=== PATIENT | female | born 1985 | race Caucasian/White ===

== ENCOUNTER 2023-12-27 10:54 | Emergency (ER) | payer OTHER, SELFPAY ==
[2023-12-27 11:00] VITALS: BMI 30.6
[2023-12-27 11:07] VITALS: BP 102/61
[2023-12-27 11:31] LABS: % Basophils 0.8 % (0-2); % Eosinophils 1.1 % (0-6); % Immature Granulocytes 0.1 % (0-0.5); % Lymphocytes 22.4 % (20.5-51.1); % Monocytes 7.1 % (1.7-9.3); % Neutrophils 68.5 % (42.2-75.2); Absolute Basophils 0.1 10^3/uL (0-0.2); Absolute Eosinophils 0.1 10^3/uL (0-0.7); Absolute Lymphocytes 1.8 10^3/uL (1.2-3.4); Absolute Monocytes 0.6 10^3/uL (0.1-0.6); Absolute Neutrophils 5.4 10^3/uL (1.4-6.5); Hematocrit 25.7 % (37.0-47.0); Hemoglobin 7.7 g/dL (12.0-16.0); Mean Corpuscular Hgb 20.6 pg (27.0-31.0); Mean Corpuscular Volume 68.7 fL (81.0-99.0); Mean Platelet Volume 10.1 fL (7.4-10.4); Nucleated Red Blood Cells % 0 %; Platelet Count 356 10^3/uL (130-400); Red Blood Cell Count 3.74 10^6/uL (4.20-5.40); Red Cell Dist. Width 17.6 % (11.5-14.5); White Blood Cell Count 7.9 10^3/uL (4.8-10.8)
[2023-12-27 11:46] LABS: ALT (SGPT) 21 U/L (0-35); AST (SGOT) 28 U/L (14-36); Albumin 3.4 g/dl (3.5-5.0); Alkaline Phosphatase 83 U/L (38-126); Blood Urea Nitrogen 11 mg/dl (7-17); Calcium 9.1 mg/dl (8.4-10.2); Carbon Dioxide 26 mmol/L (22-30); Chloride 103 mmol/L (98-107); Estimated Creatinine Clearance 123 ml/min; Glucose 68 mg/dl (70-99); Potassium 4.6 mmol/L (3.5-5.1); Sodium 137 mmol/L (135-145); Total Bilirubin 0.3 mg/dl (0.2-1.3); Total Protein 5.7 g/dl (6.3-8.2); eGFR > 60.00
[2023-12-27 12:12] LABS: HCG, Serum Qualitative Screen Negative
[2023-12-27 13:22] VITALS: BP 95/60
[2023-12-27 13:35] VITALS: BP 98/59
[2023-12-27 13:43] VITALS: BP 95/59
--- NOTE | 2023-12-27 14:03 | ED.GENMED ---
History of Present Illness
General
Chief Complaint: Abnormal Lab Value
Source: patient, records and police
Exam Limitations: none
Time Seen by Provider: 12/27/23 11:31
Nursing documentation reviewed up to this point in time: agreed with
History of Present Illness
History of Present Illness:
38-year-old female with history of GERD/PUD, chronic iron deficiency anemia presents to the emergency room from [facility] for evaluation of lightheadedness and anemia�she had a slight drop in hemoglobin and was sent over for
blood transfusion. Patient reports that over the past week or 2 she has noticed some increased fatigue and positional lightheadedness. She says these are her typical symptoms when she becomes more anemic. She says that she has received iron
infusions in the past for her anemia. She denies any chest pain, shortness of breath, palpitations or any other symptoms. She denies any vaginal bleeding�last menstrual period was 4 weeks ago and she says it was a normal period, no heavy bleeding.
She denies any blood in her stools. She is not on any blood thinners. I spoke with the nurse at the [facility]�they report that she was complaining of some lightheadedness and they checked her hemoglobin level and it had dropped from 8.4 in February
2022 to 8.0 on labs drawn today and so she was referred to the ER for blood transfusion.
Review of Systems
Review of Systems
All Other Systems: ROS reviewed and negative except as documented in HPI and ROS
Constitutional: Reports fatigue
Respiratory: Denies trouble breathing
Cardiac: Denies chest pain, palpitations or syncope
ABD/GI: Denies abdominal pain, vomiting, diarrhea, bloody stools or black stools
: Denies bleeding
Neurological: Reports dizzy; Denies headache
Phy Exam
Physical Exam
Physical Exam:
General: Awake, alert, oriented x3; no acute distress
Head: Normocephalic, atraumatic
Eyes: Conjunctiva normal
Throat: Airway intact, handling secretions
Neck: Trachea midline, supple without meningismus
Lungs: Clear to auscultation bilaterally, no wheezing, rales, rhonchi
Heart: Regular rate and rhythm, no murmurs, gallops, or rubs
Abd: Soft, non distended, nontender
Rectal: Light brown stool Hemoccult negative
Neuro: No gross deficits
Skin: no rash
Extremities: No edema in extremities, equal pulses in all extremities
Scores
Heart Failure Risk
Heart Failure Risk Score: Not Applicable
Heart Score for Chest Pain Patients
STEMI patient?: Not applicable
Withdrawal Assessment of Alcohol
Withdrawal Assessment Completed?: Not applicable
Course
Orders/Labs/Results
Orders:
Orders
12/27/23 11:15
Type+Screen Urgent
Complete Blood Count/With Diff Urgent
Comprehensive Metabolic Panel Urgent
HCG, Serum Qualitative Screen Urgent
Comment: ADD ON
12/27/23 11:32
Test Result ONCE
12/27/23 11:51
ABO2 Urgent
[employer] Wristband Number:
Associate notified that ABO2 has been ordered: [id number]
Date: 12/27/23
Time: 11:31
[employer] Driver ID: [id number]
12/27/23 11:55
Add On- LAB Urgent
Comments:: HCG qual serum
Tests Added?: HCG qual serum
12/27/23 12:09
* Blood Bank Products Urgent
Blood Bank Products: *Packed RBC Leuko(PRBC's)
Quantity: 1
Transfuse Today: Yes
Reason: Anemia
12/27/23 12:17
Electrocardiogram (*1) Urgent
Reason for Study: Vertigo / Dizzy
EKG- Treatment ONCE
12/27/23 15:00
0.9% Sodium Chloride 500 ml [Nss] 500 ml IV 250 mls/hr
Abnormal Lab Results
12/27/23
11:15
RBC 3.74 L 10^6/uL
(4.20-5.40)
Hgb 7.7 L g/dL
(12.0-16.0)
Hct 25.7 L %
(37.0-47.0)
MCV 68.7 L fL
(81.0-99.0)
MCH 20.6 L pg
(27.0-31.0)
MCHC 30.0 L g/dL
(33.0-37.0)
RDW 17.6 H %
(11.5-14.5)
Glucose 68 L mg/dl
(70-99)
Total Protein 5.7 L g/dl
(6.3-8.2)
Albumin 3.4 L g/dl
(3.5-5.0)
Crossmatch IS Only See Detail
12/27/23 11:15
12/27/23 11:15
Vital Signs
Initial and Last Documented VS:
Initial Vital Signs
Temp Pulse Resp BP Pulse Ox
36.8 C 59 16 102/61 100
12/27/23 11:07 12/27/23 11:07 12/27/23 11:07 12/27/23 11:07 12/27/23 11:07
Last Documented Vital Signs
Temp Pulse Resp BP Pulse Ox
36.8 C 58 18 103/69 96
12/27/23 15:18 12/27/23 15:18 12/27/23 15:18 12/27/23 15:18 12/27/23 15:18
MDM/Problems Addressed
Differential Diagnosis Includes:
Symptomatic anemia, dehydration, dysrhythmia, electrolyte derangement, viral syndrome
MDM/Problems Addressed:
38-year-old female presents to the emergency room from [facility] for evaluation of positional lightheadedness and fatigue that she says is consistent with prior anemia symptoms. She has a history of chronic iron deficiency anemia. Had slight drop in
hemoglobin given that she had a minor drop and was having symptoms she was referred for blood transfusion. She has not had any bleeding. Vitals and exam as above�notably heme-negative. He sent off labs�hemoglobin confirmed minor drop, 7.7 today.
Low MCV. CMP showed mild hypoglycemia�patient taking p.o. here. hCG negative. We sent off a type and screen. I checked an EKG given her positional dizziness and this shows sinus rhythm. I had a long discussion with the patient, explained that
this is above typical transfusion threshold but she says she gets very symptomatic with minor drops. Will give 1 unit of PRBCs. Can be discharged after transfusion. Follow-up with primary provider at [facility].
Chronic conditions affecting care:
Chronic, deficiency anemia
*Pulse Oximetry
Patient hypoxic: no
*EKG
Interpreted by ED Provider?: Yes
Heart Rate: 52
Rate: bradycardiac
Rhythm: sinus
[place]: normal axis
Interval: normal interval
QRS Pattern: normal QRS
Ischemia: no ischemia
*Critical Care Note
Total Time (30-74mins, 75-104mins- exclusive of procedures): Not Applicable
Data Reviewed
Review of Other/Old Records Reveals: Labs and Records
Source: patient, records and police
Patient Management
Discussion with other providers: PCP (Discussed with primary provider at the [facility])
ED Attending Note
-
Portions of this chart may have been created with voice recognition software.� Occasional wrong word or��sound alike� substitutions may have occurred due to the inherent limitations of voice recognition software.
Discharge Plan
Departure
Patient Disposition: Home (Routine Discharge)
Date of Disposition: 12/27/23
Time of Disposition: 14:06
Patient with high blood pressure during this ER visit?: No
Discharge Problem:
Symptomatic anemia
Instructions: Blood transfusion
Prescriptions:
No Action
ropinirole [Requip] 1 mg Tablet
1 mg PO HS
pantoprazole 40 mg Tablet,Delayed Release (Dr/Ec)
40 mg PO DAILY
Referrals:
[facility] [Family Provider] - Follow up in 2-3 days
Activity Restrictions/Additional Instructions:
Thank you for visiting the Emergency Department at [facility].
1. Please schedule a follow up appointment as directed. Call first thing tomorrow morning to make an appointment.
2. If indicated, please take your medications as instructed and indicated on discharge paperwork.
3. If any of your symptoms do not improve, or persist, or become more severe within 6-12 hours, please return to the emergency department for further care.
4. Please return to the emergency department if you develop a headache, neck pain/stiffness, fever greater than 100.4F, chest pain, shortness of breath, persistent nausea, vomiting, slurred speech, difficulty walking, numbness/tingling, weakness,
signs of infection or any other symptoms that are worrisome to you.
Please call [phone] if you have any questions.
Interventions
Interventions:
*Risk Screen - Suicide Last Done: 12/27/23 10:55
*General Assessment Last Done: 12/27/23 10:55
*Neglect/Abuse Screening Last Done: 12/27/23 10:55
ED- Fall Risk Assessment Last Done: 12/27/23 10:55
*ED COVID-19 Vaccine History Last Done: 12/27/23 10:55
Discharge Date and Time
Print Language: TRINIDADIAN
[2023-12-27 15:18] VITALS: BP 103/69
[2023-12-27] MEDS: NSS 500 IV (15:26)
[2023-12-27 16:07] VITALS: BP 103/69
== END 2023-12-27 16:17 | disposition home or self-care (01) ==
LOC: EMR 10:54
PROVIDERS: Emergency Medicine; EMERGENCY PHYSICIAN Emergency Medicine
DX: D64.9 Anemia, unspecified (principal); K21.9 Gastro-esophageal reflux disease without esophagitis; Z87.11 Personal history of peptic ulcer disease
CPT/HCPCS: 99283; 96360; 80053; 84703; 85025; 86850; 86900; 86901; 86920; 93005; P9016